=== PATIENT | female | born 1940 | race Caucasian/White ===

== ENCOUNTER 2022-10-07 09:52 | Emergency (ER) | payer MEDICARE ==
[~2022-10-07] VITALS: Ht 162.6 cm; Wt 81.8 kg
[2022-10-07] MEDS ORDERED: SODIUM CHLORIDE 0.9% 1,000 ML IV ONE ×2 (10:15→11:00)
[2022-10-07] MEDS ORDERED: ACETAMINOPHEN 1000 MG/ISO-OSM 100 ML IV ONE (10:15)
[2022-10-07] MEDS ORDERED: ONDANSETRON HCL 4 MG/2 ML VIAL IVP ONE (10:15)
[2022-10-07] MEDS ORDERED: HYDR25TA2 PO (10:24)
[2022-10-07] MEDS ORDERED: CEPH-558 PO ×3 (10:24→18:21)
[2022-10-07] MEDS ORDERED: OMEP20CA12 PO (10:24)
[2022-10-07] MEDS ORDERED: MELO-108 PO (10:24)
[2022-10-07] MEDS ORDERED: LEVO75 PO (10:24)
[2022-10-07] MEDS ORDERED: [UNRECOGNIZED DRUG - OTHER] PO (10:24)
[2022-10-07] MEDS ORDERED: SUVO20TA PO (10:24)
[2022-10-07] MEDS ORDERED: ROSU20TA73 PO (10:24)
[2022-10-07] MEDS ORDERED: PREG75 PO (10:24)
[2022-10-07] MEDS ORDERED: ZINC220T4 PO (10:24)
[2022-10-07] MEDS ORDERED: NEBI5TAB2 PO (10:26)
[2022-10-07 10:35] LABS: BASOPHILS % (AUTO) 0.2 % (0.0-2.0); EOSINOPHILS % (AUTO) 0.1 % (1.0-6.0); HEMATOCRIT 38.5 % (36-46); HEMOGLOBIN 12.6 g/dL (12.0-16.0); LYMPHOCYTES # (AUTO) 0.9 K/uL (1.0-4.8); LYMPHOCYTES % (AUTO) 10.4 % (22.0-44.0); MEAN CORPUSCULAR HEMOGLOBIN 27.2 pg (26.0-34.0); MEAN CORPUSCULAR HGB CONC 32.6 G/dL (31.0-37.0); MEAN CORPUSCULAR VOLUME 83 fL (80-100); MONOCYTES # (AUTO) 0.4 K/uL (0.1-1.0); MONOCYTES % (AUTO) 5.1 % (2.0-9.0); NEUTROPHILS # (AUTO) 7.2 K/uL (1.8-7.7); NEUTROPHILS % (AUTO) 84.2 % (40.0-70.0); PLATELET COUNT (AUTO) 226 K/uL (150-450); RED BLOOD CELL COUNT(AUTO) 4.63 MIL/uL (4.00-5.20); RED CELL DISTRIBUTION WIDTH 14.6 % (11.5-14.5)
[2022-10-07 10:51] LABS: ANION GAP 7 mmol/L (8-16); CALCIUM, TOTAL 10.1 mg/dL (8.8-10.5); CARBON DIOXIDE 29 mmol/L (22-29); CHLORIDE 98 mmol/L (98-107); CREATININE 0.78 mg/dL (0.60-1.30); GLOMERULAR FILTR. RATE CALC > 60 mL/min (>60); GLUCOSE,RANDOM 124 mg/dL (70-110); POTASSIUM 4.8 mmol/L (3.5-5.1); SODIUM SERUM 134 mmol/L (136-145)
[2022-10-07 10:56] LABS: ALANINE AMINOTRANSFERASE 21 U/L (12-78); ALKALINE PHOSPHATASE 87 U/L (46-116); ASPARTATE AMINOTRANSFERASE 35 U/L (15-37); BILIRUBIN,TOTAL 0.6 mg/dL (0.1-1.0); LIPASE 108 U/L (73-393)
[2022-10-07] MEDS ORDERED: UBID50TA3 PO (13:45)
[2022-10-07] MEDS ORDERED: OMEG-102 PO (13:45)
[2022-10-07] MEDS ORDERED: COLLAGEN PO (13:45)
[2022-10-07 14:17] LABS: APPEARANCE,URINE CLEAR (CLEAR); BILIRUBIN,URINE NEGATIVE (NEGATIVE); GLUCOSE, URINE (UA) NEGATIVE (NEGATIVE); KETONES,URINE NEGATIVE (NEGATIVE); LEUKOCYTE ESTERASE ,URINE LARGE (NEGATIVE); NITRATE,URINE NEGATIVE (NEGATIVE); OCCULT BLOOD,URINE SMALL (NEGATIVE); PH,URINE 5.5 (5.0-8.0); PROTEIN,URINE NEGATIVE (NEGATIVE); SPECIFIC GRAVITIY, URINE 1.008 (1.003-1.030); UROBILINOGEN,URINE <=1.0 mg/dL (<=1.0)
[2022-10-07 14:26] LABS: RBC,URINE 0-2 /HPF (0-2)
[2022-10-07 14:27] LABS: BACTERIA,URINE Rare /HPF (None Seen)
[2022-10-07 14:28] LABS: TRANSITIONAL EPI CELLS,URINE Rare /LPF (None Seen)
[2022-10-07 16:50] VITALS: TEMP 98.3
[2022-10-07 17:29] VITALS: BP 166/69; PULSE 55; RESP 15
[2022-10-07] MEDS ORDERED: ACETAMINOPHEN 500 MG TABLET PO ONE (17:45)
[2022-10-07] MEDS ORDERED: ONDANSETRON HCL 4 MG TABLET PO ONE (17:45)
[2022-10-07] MEDS ORDERED: ACET-2247 PO ×2 (17:59→18:21)
[2022-10-07] MEDS ORDERED: METR250 PO ×2 (17:59→18:21)
[2022-10-07] MEDS ORDERED: ONDA-104 PO ×2 (17:59→18:21)
== END 2022-10-07 18:30 | disposition home or self-care (01) ==
LOC: EMS 09:54
DX: R10.30 Lower abdominal pain, unspecified (principal); R11.2 Nausea with vomiting, unspecified; K57.32 Diverticulitis of large intestine without perforation or abscess without bleeding; K27.9 Peptic ulcer, site unspecified, unspecified as acute or chronic, without hemorrhage or perforation; N39.0 Urinary tract infection, site not specified; E78.00 Pure hypercholesterolemia, unspecified; I10 Essential (primary) hypertension; Z90.710 Acquired absence of both cervix and uterus; Z88.0 Allergy status to penicillin; Z88.8 Allergy status to other drugs, medicaments and biological substances; Z88.5 Allergy status to narcotic agent
CPT/HCPCS: 99285; 96365; 71045; 96375; 80053; 81001; 83690; 84484; 85025; 36415; 87086; 87186; 93005; J2405; Q0162; J7030; J0131